=== PATIENT | male | born 1965 | race Caucasian/White ===

== ENCOUNTER 2017-12-27 05:48 | Inpatient (IN) | payer MEDICARE, OTHER ==
[~2017-12-27] VITALS: Ht 175.3 cm; Wt 61.8 kg
[~2017-12-27 05:48] MED LIST: BACL10TA PO; CLON1 PO; CeFAZolin 2 GM/DEXTROSE 50 ML IV ONE; DULO60CA44 PO; PERCT10 PO; QUET200T PO; RINGERS SOLUTION,LACTATED 1,000 ML IV ONE
[2017-12-27] MEDS ORDERED: RINGERS SOLUTION,LACTATED 1,000 ML IV ONE ×2 (06:00→08:17)
[2017-12-27] MEDS ORDERED: CeFAZolin 2 GM/DEXTROSE 50 ML IV ONE (06:00)
[2017-12-27 06:37] LABS: BASOPHILS % (AUTO) 0.9 % (0.0-2.0); EOSINOPHILS % (AUTO) 8.1 % (1.0-6.0); HEMATOCRIT 41.1 % (41-53); HEMOGLOBIN 14.1 g/dL (13.5-17.5); LYMPHOCYTES # (AUTO) 2.2 K/uL (1.0-4.8); LYMPHOCYTES % (AUTO) 31.5 % (22.0-44.0); MEAN CORPUSCULAR HEMOGLOBIN 31.6 pg (26.0-34.0); MEAN CORPUSCULAR HGB CONC 34.4 G/dL (31.0-37.0); MEAN CORPUSCULAR VOLUME 92 fL (80-100); MONOCYTES # (AUTO) 0.6 K/uL (0.1-1.0); MONOCYTES % (AUTO) 8.3 % (2.0-9.0); NEUTROPHILS # (AUTO) 3.5 K/uL (1.8-7.7); NEUTROPHILS % (AUTO) 51.2 % (40.0-70.0); PLATELET COUNT (AUTO) 289 K/uL (150-450); RED BLOOD CELL COUNT(AUTO) 4.48 MIL/uL (4.50-5.90); RED CELL DISTRIBUTION WIDTH 16.5 % (11.5-14.5)
[2017-12-27 06:47] LABS: ANION GAP 5 mmol/L (8-16); CALCIUM, TOTAL 8.8 mg/dL (8.8-10.5); CARBON DIOXIDE 30 mmol/L (22-29); CHLORIDE 103 mmol/L (98-107); CREATININE 0.65 mg/dL (0.60-1.30); GLOMERULAR FILTR. RATE CALC > 60 mL/min (>60); GLUCOSE,RANDOM 84 mg/dL (70-110); POTASSIUM 3.9 mmol/L (3.5-5.1); SODIUM SERUM 138 mmol/L (136-145); UREA NITROGEN, BLOOD 16 mg/dL (7-18)
[2017-12-27] MEDS ORDERED: IOHEXOL 240 MG/ML 20 ML VIAL ONE ×2 (06:56→07:37)
[2017-12-27] MEDS ORDERED: BUPIVACAINE/EPI/PF 0.5% 30 ML VIAL ONE (06:56)
[2017-12-27] MEDS ORDERED: HYDROmorphone 2 MG/ML SYRINGE ONE (09:15)
[2017-12-27] MEDS ORDERED: OXYGEN THERAPY IH SCH (09:15)
[2017-12-27] MEDS ORDERED: FentaNYL CITRATE-PF 100 MCG/2 ML VIAL IVP PRN (09:15)
[2017-12-27] MEDS ORDERED: HYDROmorphone 2 MG/ML SYRINGE IVP PRN (09:15)
[2017-12-27] MEDS ORDERED: MEPERIDINE-PF 25 MG/ML SYRINGE IVP PRN (09:15)
[2017-12-27] MEDS ORDERED: KETAMINE HCL 50 MG/ML 10 ML VIAL IVP ONE (10:29)
[2017-12-27] MEDS ORDERED: 0.9% SODIUM CHLORIDE 10 ML VIAL IVP ONE (10:29)
[2017-12-27] MEDS ORDERED: SUCCINYLCHOLINE CHLORIDE 20 MG/ML 10 ML VIAL IVP ONE (10:29)
[2017-12-27] MEDS ORDERED: PROPOFOL 1% 20 ML VIAL IVP ONE (10:29)
[2017-12-27] MEDS ORDERED: ALBUTEROL SULFATE HFA 90 MCG/PUFF 8 GM INHALER IH ONE (10:29)
[2017-12-27] MEDS ORDERED: LIDOCAINE HCL/PF 2% 5 ML SYRINGE IVP ONE (10:29)
[2017-12-27] MEDS ORDERED: DEXAMETHASONE SOD PHOS 4 MG/ML VIAL IVP ONE (10:29)
[2017-12-27] MEDS ORDERED: FentaNYL CITRATE-PF 100 MCG/2 ML VIAL IVP ONE (10:29)
[2017-12-27] MEDS ORDERED: MIDAZOLAM HCL 2 MG/2 ML VIAL IVP ONE (10:29)
== END 2017-12-27 10:30 | disposition home or self-care (01) | DRG 517 ==
LOC: 4E 05:48 → 6N 05:55
PROVIDERS: ADMIT Orthopaedic Surgery Orthopaedic Surgery of the Spine; ATTEND Orthopaedic Surgery Orthopaedic Surgery of the Spine
PROC: 0PU43JZ Supplement Thoracic Vertebra with Synthetic Substitute, Percutaneous Approach (ICD-10-PCS; 2017-12-27)
PROC: 0PS43ZZ Reposition Thoracic Vertebra, Percutaneous Approach (ICD-10-PCS; principal; 2017-12-27 07:42)
DX: M80.88XA Other osteoporosis with current pathological fracture, vertebra(e), initial encounter for fracture (principal); F17.210 Nicotine dependence, cigarettes, uncomplicated
CPT/HCPCS: 87081; 93005; J0330; J0690; J1100; J1170; J2250; J2704; J3010; J3490; J3535; J7120; Q9966

== ENCOUNTER 2018-08-02 12:40 | Inpatient (IN) | payer MEDICAID, MEDICARE, OTHER ==
[~2018-08-02] VITALS: Ht 177.8 cm; Wt 55.3 kg
[~2018-08-02 12:40] MED LIST changes: -CeFAZolin 2 GM/DEXTROSE 50 ML IV ONE; -RINGERS SOLUTION,LACTATED 1,000 ML IV ONE
[2018-08-02] MEDS ORDERED: TRAZ-219 PO (13:21)
[2018-08-02] MEDS ORDERED: IBUP-2071 PO (13:21)
[2018-08-02 14:07] LABS: BASOPHILS % (AUTO) 0.7 % (0.0-2.0); EOSINOPHILS % (AUTO) 4.9 % (1.0-6.0); HEMATOCRIT 44.8 % (41-53); HEMOGLOBIN 15.1 g/dL (13.5-17.5); LYMPHOCYTES # (AUTO) 1.9 K/uL (1.0-4.8); LYMPHOCYTES % (AUTO) 22.1 % (22.0-44.0); MEAN CORPUSCULAR HGB CONC 33.8 G/dL (31.0-37.0); MEAN CORPUSCULAR VOLUME 95 fL (80-100); MONOCYTES # (AUTO) 0.7 K/uL (0.1-1.0); MONOCYTES % (AUTO) 8.3 % (2.0-9.0); NEUTROPHILS # (AUTO) 5.4 K/uL (1.8-7.7); RED BLOOD CELL COUNT(AUTO) 4.73 MIL/uL (4.50-5.90); RED CELL DISTRIBUTION WIDTH 13.7 % (11.5-14.5)
[2018-08-02 14:28] LABS: ANION GAP 2 mmol/L (8-16); CALCIUM, TOTAL 8.2 mg/dL (8.8-10.5); CARBON DIOXIDE 33 mmol/L (22-29); CHLORIDE 104 mmol/L (98-107); CREATININE 0.61 mg/dL (0.60-1.30); GLOMERULAR FILTR. RATE CALC > 60 mL/min (>60); GLUCOSE,RANDOM 88 mg/dL (70-110); POTASSIUM 4.1 mmol/L (3.5-5.1); SODIUM SERUM 139 mmol/L (136-145); UREA NITROGEN, BLOOD 16 mg/dL (7-18)
[2018-08-02 14:32] LABS: ALANINE AMINOTRANSFERASE 24 U/L (12-78); ALBUMIN 2.9 g/dL (3.4-5.0); ALKALINE PHOSPHATASE 90 U/L (46-116); ASPARTATE AMINOTRANSFERASE 9 U/L (15-37); BILIRUBIN,TOTAL 0.2 mg/dL (0.1-1.0); TOTAL PROTEIN, SERUM 6.1 g/dL (6.4-8.2)
[2018-08-02 14:44] LABS: PLATELET COUNT (AUTO) 283 K/uL (150-450)
[2018-08-02] MEDS ORDERED: QUEtiapine FUMARATE 100 MG TABLET PO ONE (14:45)
[2018-08-02] MEDS ORDERED: LORazepam 2 MG TABLET PO ONE (14:45)
[2018-08-02] MEDS ORDERED: HALOPERIDOL 5 MG TABLET PO PRN (14:45)
[2018-08-02 15:42] LABS: AMPHET/METH SCREEN,URINE NEGATIVE (NEGATIVE); BARBITURATE SCREEN, URINE NEGATIVE (NEGATIVE); BENZODIAZEPINES SCREEN,URINE NEGATIVE (NEGATIVE); CANNABINOID SCREEN,URINE NEGATIVE (NEGATIVE); COCAINE SCREEN,URINE NEGATIVE (NEGATIVE); METHADONE SCREEN, URINE NEGATIVE (NEGATIVE); OPIATE SCREEN,URINE NEGATIVE (NEGATIVE)
[2018-08-02 15:43] LABS: PHENCYCLIDINE SCREEN,URINE NEGATIVE (NEGATIVE)
[2018-08-02 16:40] LABS: APPEARANCE,URINE TURBID (CLEAR); BILIRUBIN,URINE NEGATIVE (NEGATIVE); GLUCOSE, URINE (UA) NEGATIVE (NEGATIVE); KETONES,URINE NEGATIVE (NEGATIVE); LEUKOCYTE ESTERASE ,URINE NEGATIVE (NEGATIVE); NITRATE,URINE NEGATIVE (NEGATIVE); OCCULT BLOOD,URINE NEGATIVE (NEGATIVE); PROTEIN,URINE NEGATIVE (NEGATIVE); UROBILINOGEN,URINE 0.2 mg/dL (<=1.0)
[2018-08-02 18:25] VITALS: BP 118/74
[2018-08-02] MEDS ORDERED: ALBUTEROL SULFATE HFA 90 MCG/PUFF 8 GM INHALER IH PRN (19:45)
[2018-08-02] MEDS ORDERED: PNEUMOCOCCAL VACCINE POLYVALENT 0.5 ML VIAL [PPSV23] IM ONE (20:30)
[2018-08-02] MEDS: ZOLPIDEM TARTRATE 10 MG TABLET PO PRN (21:21)
[2018-08-03 04:29] VITALS: BP 127/76
[2018-08-03] MEDS: LORazepam 2 MG TABLET PO PRN ×2 (04:30→17:56)
[2018-08-03 08:08] VITALS: BP 97/68
[2018-08-03 09:10] LABS: CHOL/HDL RATIO 3.1 (4.2-7.3); THYROID STIMULATING HORMONE 1.46 uIU/mL (0.36-3.74)
[2018-08-03] MEDS: NICOTINE 21 MG/24 HOUR PATCH TD SCH (09:26)
[2018-08-03 11:02] LABS: FREE T4 (FREE THYROXINE) 0.9 ng/dL (0.76-1.46)
[2018-08-03] MEDS: DULoxetine HCL 30 MG CAPSULE PO SCH (13:47)
[2018-08-03 16:00] VITALS: BP 104/69
[2018-08-03] MEDS ORDERED: PETROLATUM,WHITE 71 GM JELLY TP PRN (18:15)
[2018-08-03] MEDS ORDERED: DOCUSATE SODIUM 100 MG CAPSULE PO PRN (18:15)
[2018-08-03] MEDS ORDERED: LOPERAMIDE HCL 2 MG CAPSULE PO PRN (18:15)
[2018-08-03] MEDS ORDERED: ACETAMINOPHEN 325 MG TABLET PO PRN (18:15)
[2018-08-03] MEDS ORDERED: ONDANSETRON HCL 4 MG TABLET PO PRN (18:15)
[2018-08-03] MEDS ORDERED: OMEPRAZOLE 20 MG CAPSULE PO PRN (18:15)
[2018-08-03] MEDS ORDERED: CloNIDine HCL 0.1 MG TABLET PO PRN (18:15)
[2018-08-03] MEDS ORDERED: TraMADol HCL 50 MG TABLET PO PRN (18:15)
[2018-08-03] MEDS ORDERED: BENZOCAINE/MENTHOL LOZENGE MM PRN (18:15)
[2018-08-03] MEDS ORDERED: MAG HYDROX/AL HYDROX/SIMETH ES 30 ML SUSPENSION UDCUP PO PRN (18:15)
[2018-08-03] MEDS ORDERED: IBUPROFEN 800 MG TABLET PO PRN (18:15)
[2018-08-03] MEDS ORDERED: BACITRACIN 28.4 GM OINTMENT TP PRN (18:15)
[2018-08-03] MEDS ORDERED: MAGNESIUM HYDROXIDE SUSPENSION 30 ML UDCUP PO PRN (18:15)
[2018-08-03] MEDS: ZOLPIDEM TARTRATE 10 MG TABLET PO PRN (21:18)
[2018-08-03] MEDS: TraZODone HCL 50 MG TABLET PO SCH (21:18)
[2018-08-03] MEDS: QUEtiapine FUMARATE 200 MG TABLET PO SCH (21:18)
[2018-08-04 05:57] VITALS: BP 108/72
[2018-08-04 08:41] VITALS: BP 99/55
[2018-08-04] MEDS: BACLOFEN 10 MG TABLET PO SCH ×3 (10:18→16:33)
[2018-08-04] MEDS: MULTIVITAMINS WITH MINERALS, THERAPEUTIC TABLET PO SCH (10:19)
[2018-08-04] MEDS: NICOTINE 21 MG/24 HOUR PATCH TD SCH (10:54)
[2018-08-04] MEDS: DULoxetine HCL 30 MG CAPSULE PO SCH (12:49)
[2018-08-04] MEDS: GABAPENTIN 100 MG CAPSULE PO SCH ×2 (13:26→16:33)
[2018-08-04] MEDS: LORazepam 2 MG TABLET PO PRN (13:27)
[2018-08-04 16:47] VITALS: BP 106/70
[2018-08-04] MEDS: QUEtiapine FUMARATE 200 MG TABLET PO SCH (20:08)
[2018-08-04] MEDS: TraZODone HCL 50 MG TABLET PO SCH (20:09)
[2018-08-05 08:17] VITALS: BP 102/64
[2018-08-05] MEDS: BACLOFEN 10 MG TABLET PO SCH ×3 (09:01→16:13)
[2018-08-05] MEDS: MULTIVITAMINS WITH MINERALS, THERAPEUTIC TABLET PO SCH (09:02)
[2018-08-05] MEDS: GABAPENTIN 100 MG CAPSULE PO SCH ×3 (09:02→16:13)
[2018-08-05] MEDS: DULoxetine HCL 30 MG CAPSULE PO SCH (09:02)
[2018-08-05] MEDS: NICOTINE 21 MG/24 HOUR PATCH TD SCH (09:03)
[2018-08-05] MEDS: LORazepam 2 MG TABLET PO PRN ×2 (09:17→16:55)
[2018-08-05 16:27] VITALS: BP 112/70
[2018-08-05] MEDS: TraZODone HCL 50 MG TABLET PO SCH (20:18)
[2018-08-05] MEDS: QUEtiapine FUMARATE 200 MG TABLET PO SCH (20:18)
[2018-08-06 05:57] VITALS: BP 110/74
[2018-08-06 08:19] VITALS: BP 122/73
[2018-08-06] MEDS: GABAPENTIN 300 MG CAPSULE PO SCH ×3 (08:52→20:04)
[2018-08-06] MEDS: BACLOFEN 10 MG TABLET PO SCH ×3 (08:53→16:10)
[2018-08-06] MEDS: DULoxetine HCL 30 MG CAPSULE PO SCH (08:53)
[2018-08-06] MEDS: LORazepam 2 MG TABLET PO PRN ×2 (08:53→14:35)
[2018-08-06] MEDS: MULTIVITAMINS WITH MINERALS, THERAPEUTIC TABLET PO SCH (08:53)
[2018-08-06] MEDS: NICOTINE 21 MG/24 HOUR PATCH TD SCH (09:34)
[2018-08-06 16:08] VITALS: BP 110/70
[2018-08-06] MEDS: QUEtiapine FUMARATE 200 MG TABLET PO SCH (20:04)
[2018-08-06] MEDS: TraZODone HCL 50 MG TABLET PO SCH (20:04)
[2018-08-07 00:39] VITALS: BP 103/62
[2018-08-07 08:16] VITALS: BP 110/72
[2018-08-07] MEDS: BACLOFEN 10 MG TABLET PO SCH ×3 (08:17→16:12)
[2018-08-07] MEDS: DULoxetine HCL 30 MG CAPSULE PO SCH (08:17)
[2018-08-07] MEDS: MULTIVITAMINS WITH MINERALS, THERAPEUTIC TABLET PO SCH (08:17)
[2018-08-07] MEDS: GABAPENTIN 300 MG CAPSULE PO SCH ×3 (08:18→20:32)
[2018-08-07] MEDS: NICOTINE 21 MG/24 HOUR PATCH TD SCH (08:18)
[2018-08-07] MEDS: LORazepam 2 MG TABLET PO PRN ×2 (09:12→14:27)
[2018-08-07 16:04] VITALS: BP 105/66
[2018-08-07] MEDS: TraZODone HCL 50 MG TABLET PO SCH (20:32)
[2018-08-07] MEDS: QUEtiapine FUMARATE 200 MG TABLET PO SCH (20:32)
[2018-08-08 02:15] VITALS: BP 103/64
[2018-08-08 08:16] VITALS: BP 114/62
[2018-08-08] MEDS: MULTIVITAMINS WITH MINERALS, THERAPEUTIC TABLET PO SCH (08:46)
[2018-08-08] MEDS: GABAPENTIN 300 MG CAPSULE PO SCH (08:46)
[2018-08-08] MEDS: DULoxetine HCL 30 MG CAPSULE PO SCH (08:46)
[2018-08-08] MEDS: BACLOFEN 10 MG TABLET PO SCH ×3 (08:46→16:30)
[2018-08-08] MEDS: NICOTINE 21 MG/24 HOUR PATCH TD SCH (08:47)
[2018-08-08] MEDS: LORazepam 2 MG TABLET PO PRN ×3 (08:48→20:18)
[2018-08-08] MEDS ORDERED: GABAPENTIN 100 MG CAPSULE PO ONE (09:30)
[2018-08-08] MEDS: GABAPENTIN 400 MG CAPSULE PO SCH ×3 (11:58→20:18)
[2018-08-08 16:08] VITALS: BP 102/61
[2018-08-08] MEDS: QUEtiapine FUMARATE 200 MG TABLET PO SCH (20:18)
[2018-08-08] MEDS: TraZODone HCL 50 MG TABLET PO SCH (20:18)
[2018-08-09 00:15] VITALS: BP 100/69
[2018-08-09 08:05] VITALS: BP 100/67
[2018-08-09] MEDS: GABAPENTIN 400 MG CAPSULE PO SCH ×4 (08:07→20:43)
[2018-08-09] MEDS: MULTIVITAMINS WITH MINERALS, THERAPEUTIC TABLET PO SCH (08:07)
[2018-08-09] MEDS: DULoxetine HCL 30 MG CAPSULE PO SCH (08:07)
[2018-08-09] MEDS: BACLOFEN 10 MG TABLET PO SCH ×3 (08:07→16:13)
[2018-08-09] MEDS: NICOTINE 21 MG/24 HOUR PATCH TD SCH (08:08)
[2018-08-09] MEDS: LORazepam 2 MG TABLET PO PRN ×3 (08:58→19:50)
[2018-08-09 16:03] VITALS: BP 106/67
[2018-08-09] MEDS: QUEtiapine FUMARATE 200 MG TABLET PO SCH (20:43)
[2018-08-09] MEDS: TraZODone HCL 50 MG TABLET PO SCH (20:43)
[2018-08-09] MEDS: CEPHALEXIN MONOHYDRATE 500 MG CAPSULE PO SCH (20:49)
[2018-08-10 06:07] VITALS: BP 106/64
[2018-08-10] MEDS: MULTIVITAMINS WITH MINERALS, THERAPEUTIC TABLET PO SCH (08:09)
[2018-08-10] MEDS: GABAPENTIN 400 MG CAPSULE PO SCH ×3 (08:09→16:19)
[2018-08-10] MEDS: BACLOFEN 10 MG TABLET PO SCH ×3 (08:10→16:19)
[2018-08-10] MEDS: DULoxetine HCL 30 MG CAPSULE PO SCH (08:10)
[2018-08-10] MEDS: NICOTINE 21 MG/24 HOUR PATCH TD SCH (08:10)
[2018-08-10] MEDS: CEPHALEXIN MONOHYDRATE 500 MG CAPSULE PO SCH (08:10)
[2018-08-10] MEDS: LORazepam 2 MG TABLET PO PRN (08:11)
[2018-08-10 08:25] VITALS: BP 104/67
[2018-08-10] MEDS ORDERED: BACITRACIN 28.4 GM OINTMENT TP SCH (09:00)
[2018-08-10] MEDS ORDERED: QUET200T29 PO (12:50)
[2018-08-10] MEDS ORDERED: TRAZ-219 PO ×3 (12:50→13:48)
[2018-08-10] MEDS ORDERED: DULO30CA2 PO (12:50)
[2018-08-10] MEDS ORDERED: GABA-533 PO (12:50)
[2018-08-10] MEDS ORDERED: QUET200T PO (13:35)
[2018-08-10] MEDS ORDERED: GABA400C PO (13:36)
[2018-08-10] MEDS ORDERED: MULT1CAP32 PO (13:37)
[2018-08-10] MEDS ORDERED: CEPH-582 PO (13:41)
[2018-08-10 16:12] VITALS: BP 109/72
== END 2018-08-10 18:30 | disposition home or self-care (01) | DRG 750 ==
LOC: EMS 12:40 → B2S 16:53
DX: F25.1 Schizoaffective disorder, depressive type (principal); R45.851 Suicidal ideations; E83.51 Hypocalcemia; G40.909 Epilepsy, unspecified, not intractable, without status epilepticus; F15.10 Other stimulant abuse, uncomplicated; G89.29 Other chronic pain; F41.9 Anxiety disorder, unspecified; J44.9 Chronic obstructive pulmonary disease, unspecified; M81.0 Age-related osteoporosis without current pathological fracture; F12.10 Cannabis abuse, uncomplicated; F17.200 Nicotine dependence, unspecified, uncomplicated; Z79.899 Other long term (current) drug therapy
CPT/HCPCS: 84439; 84443; 87070; 87075; 90686; 90732; 99406; G0480

== ENCOUNTER 2019-03-21 19:10 | Emergency (ER) | payer OTHER ==
[~2019-03-21] VITALS: Ht 175.3 cm; Wt 68.2 kg
[~2019-03-21 19:10] MED LIST changes: +CEPH-582 PO; +DULO30CA2 PO; -DULO60CA44 PO; +GABA-533 PO; +IBUP-2071 PO; +MULT1CAP32 PO; -QUET200T PO; +QUET200T29 PO; +TRAZ-252 PO
[2019-03-21 22:00] VITALS: BP 137/87
== END 2019-03-21 22:21 | disposition home or self-care (01) ==
LOC: EMS 19:21
DX: F41.9 Anxiety disorder, unspecified (principal); F15.10 Other stimulant abuse, uncomplicated; F32.9 Major depressive disorder, single episode, unspecified; J44.9 Chronic obstructive pulmonary disease, unspecified; F12.90 Cannabis use, unspecified, uncomplicated; F17.210 Nicotine dependence, cigarettes, uncomplicated; Z79.899 Other long term (current) drug therapy